=== PATIENT | male | born 1965 | race Two or more races ===

== ENCOUNTER 2017-07-29 13:09 | Emergency (ER) | payer OTHER, SELFPAY ==
[2017-07-29 16:26] VITALS: BP 109/73; PULSE 67; RESP 20; TEMP 37.1; O2SAT 99
[2017-07-29 16:29] VITALS: BMI 25.1
--- NOTE | 2017-07-29 16:32 | XR_ITS ---
XR chest 2V Ordering Physician: Kimo Tomlinson MD Patient Age: 51 years: Male HISTORY: ITS.REASON: prod cough Cough congestion TECHNIQUE: PA and lateral chest COMPARISON :No previous chest film CT abdomen from March 2016 includes lower lung bases. FINDINGS No acute findings on today's chest film no focal infiltrate. No focal pneumonia. Heart elvira and mediastinal structures satisfactory. Chest wall and ribs T-spine unremarkable. IMPRESSION: Lungs clear. Nothing definitely acute
[2017-07-29 17:17] LABS: Strep Scrn Group A (Rapid) Negative (Negative)
[2017-07-29 17:55] VITALS: BP 109/78; PULSE 66; RESP 18; TEMP 37.1; O2SAT 95; BMI 25.7
--- NOTE | 2017-07-29 18:34 | [facility].EDGENADL ---
ED Disposition Clinical Impression: Bronchitis Disposition: Home, Self-Care Condition on Discharge: Good Prescriptions: Azithromycin [Z-Tariq 250mg Tab] 250 mg PO UD DOSE PK #6 tab - Critical Care Critical Care Time: No Attestation: On 07/29/17, the high probability of a clinically significant, sudden or life threatening deterioration of the following system(s) required my full and direct attention, intervention and personal management. The time I documented below is in addition to time spent performing reported procedures but includes the following listed in this critical care notation. Medical Decision Making - Medical Records Medical records reviewed: Yes: I reviewed the patient's medical records. Vital Signs: 07/29/17 16:26 07/29/17 17:55 Temperature 98.7 F 98.7 F Temperature Source Oral Oral Pulse Rate [Left Radial] 67 66 Respiratory Rate 20 18 Blood Pressure [Left Arm] 109/73 109/78 Blood Pressure Mean [Left Arm] 85 88 Blood Pressure Source [Left Arm] Automatic Cuff Automatic Cuff Blood Pressure Position [Left Arm] Sitting Sitting 02 Sat by Pulse Oximetry 99 95 Oxygen Delivery Method Room Air Room Air - Lab Data flu negative Result diagrams: 07/29/17 18:13 07/29/17 18:13 Orders (Tests/Meds): ED MEDICATIONS Discontinued Medications Generic Name Dose Route Start Last Admin Trade Name Freq PRN Reason Stop Dose Admin Sodium Chloride 1,000 mls @ 999 mls/hr 07/29/17 18:30 07/29/17 18:28 Sod Chloride 0.9% 1000ml Bag IV 07/29/17 19:30 999 mls/hr .[id number] MELVINA Administration ORDERS Category Date Time Status Chest XR 2 view (NOT portable) [XR chest 2V] Stat Exams 07/29/17 16:32 Taken Blood Culture Stat Micro 07/29/17 18:13 Received Strep Screen Confirmation Stat Micro 07/29/17 16:35 Received - Radiology Data #1 Image(s): Chest Image Reviewed: Yes I reviewed the patient's radiology results Preliminary Findings: Normal/NAD - Brian Inquiry Pt receiving controlled substance: No General Adult HPI - General Chief complaint: Upper Respiratory Infection Stated complaint: coughing up blood Mode of Arrival: Ambulatory Limitations: No Limitations Description of Symptoms (Recalled from ER Triage Doc. by RN): PT HAS BEEN SICK FOR 9 DAYS WITH A COUGH, FEVER, DECREASED APPETITE, NO ENERGY,. AND BODY ACHES. - History of Present Illness Onset (ago): day(s) (9) Location: head, face, chest Radiation: non-radiation Severity: moderate Consistency: constant Relieving factors: none Associated symptoms: denies other symptoms - Related Data Previous Rx's Medication Instructions Recorded Azithromycin [Z-Tariq 250mg Tab] 250 mg PO UD DOSE PK #6 tab 07/29/17 Allergies Allergy/AdvReac Type Severity Reaction Status Date / Time No Known Allergies Allergy Unknown Uncoded 07/16/17 14:08 [facility] History I have reviewed the patient's past medical history: Yes Medical History: Denies:: Cancer, Diabetes Mellitus Type 1, Diabetes Mellitus Type 2, MRSA Amputation: No - *Social History Alcohol Intake: never - Psychiatric History Expresses thoughts of harming self/others: None Suicide Plan Description: No Plan ROS Obtained: Yes All systems reviewed & no additional complaints except - Constitutional Reports body ache(s), Reports chills, Reports fever(s) - Respiratory Reports chest congestion, Reports cough Physical Exam - General General appearance: alert, in no apparent distress - Head Head exam: atraumatic, normocephalic, normal inspection - Eye Eye exam: Present: normal appearance, PERRL, EOMI - ENT ENT exam: Present: normal exam, normal oropharynx, mucous membranes moist, TM's normal bilaterally, normal external ear exam - Neck Neck exam: Present: normal inspection, full ROM, trachea midline - Chest Chest inspection: Present: normal inspection, symmetric chest wall rise. Absent: tenderness - Respiratory Respiratory exam: Present: n
[2017-07-29 18:49] LABS: Basophils # 0.1 K/mm3 (0-0.2); Basophils % 0.5 % (0.1-2.0); Eosinophils # 0.1 K/mm3 (0.0-0.4); Eosinophils % 1.2 % (0.1-12.0); Hematocrit 46.2 % (42.0-52.0); Hemoglobin 15.1 g/dL (14.1-18.0); Lymphocytes # 1.3 K/mm3 (0.7-4.5); Lymphocytes % 12.9 K/mm3 (10-50); Mean Corpuscular HGB Conc 32.7 g/dL (31.8-35.4); Mean Corpuscular Hemoglobin 25.6 pg (27.0-31.2); Mean Corpuscular Volume 78.2 fl (80-94); Mean Platelet Volume 7.3 fl (7.4-10.4); Monocytes # 0.7 K/mm3 (0.1-1.0); Monocytes % 6.6 % (1.7-9.3); Neutrophils # 8.1 K/mm3 (1.8-7.8); Neutrophils % 78.7 % (37.0-80.0); Platelet Count 206 K/mm3 (142-424); Red Cell Distribution Width 13.5 % (11.5-17.5); White Blood Count 10.3 K/mm3 (4.8-10.8)
[2017-07-29 19:01] LABS: Alanine Aminotransferase 41 U/L (12-78); Albumin Level 3.8 gm/dL (3.4-5.0); Albumin/Globulin Ratio 0.9 (1.1-1.8); Alkaline Phosphatase 82 U/L (46-116); Aspartate Amino Transferase 17 U/L (15-37); Bilirubin,Total 0.7 mg/dL (0.2-1.0); Blood Urea Nitrogen 12 mg/dL (7-18); Calcium 9.2 mg/dL (8.5-10.1); Carbon Dioxide 31 mmol/L (21.0-32.0); Chloride 102 mmol/L (98-107); Creatinine Clearance Estimated 93 mg/ml (0-300); Creatinine,Serum 1.06 mg/dL (0.70-1.30); Estimated Glomerular Filt Rate > 60 ml/min (>60); GFR (African American) > 60 ML/MIN (>60); Globulin 4.1 gm/dl (1.3-3.2); Glucose 104 mg/dL (74-106); Sodium 140 mmol/L (136-145); Total Protein,Serum 7.9 gm/dL (6.4-8.2)
[2017-07-29 19:02] LABS: Lactic Acid 0.9 mmol/L (0.4-2.0)
[2017-07-29 20:01] VITALS: BP 113/73; PULSE 72; RESP 18; TEMP 37.3; O2SAT 98
[2017-07-29 20:07] VITALS: BP 112/73; PULSE 73; RESP 18; TEMP 37.3; O2SAT 98
== END 2017-07-29 20:18 | disposition home or self-care (01) ==
PROVIDERS: Emergency Provider Family Medicine
DX: J20.9 Acute bronchitis, unspecified (principal)
CPT/HCPCS: 71046; 80053; 83605; 85025; 87040; 87275; 87276; 87430; 99284